=== PATIENT | female | born 1995 | race Two or more races ===

== ENCOUNTER 2019-02-13 05:10 | Emergency (ER) | payer SELFPAY ==
[~2019-02-13] VITALS: Ht 157.5 cm; Wt 49.9 kg
--- NOTE | 2019-02-13 05:31 | NUR ---
kieran 61 from car with family for ETOH. pt nonverbal at this time. eye open. pt responds to painful stimuli. rr even and unlabored. no sob noted. no nvd at this time. pt connected to monitor. waiting for md quevedo.
--- NOTE | 2019-02-13 06:20 | NUR ---
[employer] TIME ANALYST AT BEDSIDE FOR BLOOD DRAW
[2019-02-13] MEDS ORDERED: OLANZAPINE 10 MG VIAL IM ONE ×2 (06:27→06:30)
[2019-02-13] MEDS ORDERED: IV NS 0.9% 1,000 ML BAG IV ONE (06:30)
[2019-02-13 06:39] LABS: BASOPHILS # (AUTO) 0.1 /CMM (0.0-0.2); BASOPHILS % (AUTO) 0.3 % (0.0-2.0); HEMATOCRIT 40 % (33-45); HEMOGLOBIN 12.4 g/dL (11.5-14.8); LYMPHOCYTES # (AUTO) 0.6 /CMM (0.8-4.8); LYMPHOCYTES % (AUTO) 3.6 % (20.0-44.0); MEAN CORPUSCULAR HGB CONC 31 g/dl (31.0-36.0); MEAN CORPUSCULAR VOLUME 76 fL (82-100); MONOCYTES # (AUTO) 1.2 /CMM (0.1-1.30); MONOCYTES % (AUTO) 6.9 % (2.0-12.0); NEUTROPHILS # (AUTO) 15.7 /CMM (1.8-8.9); NEUTROPHILS % (AUTO) 89.2 % (43.0-81.0); PLATELET COUNT (AUTO) 247 /CMM (150-450); RED BLOOD CELL COUNT(AUTO) 5.29 MIL/uL (4.0-5.2); WHITE BLOOD COUNT (AUTO) 17.6 K/uL (4.3-11.0)
--- NOTE | 2019-02-13 06:50 | NUR ---
URINE COLLECTED AND SENT TO LAB
[2019-02-13 07:04] LABS: ALBUMIN 4.7 g/dL (3.4-5.0); BILIRUBIN,DIRECT 0.1 mg/dL (0.0-0.2); BILIRUBIN,TOTAL 0.4 mg/dL (0.2-1.0); CALCIUM, SERUM 9.1 mg/dL (8.5-10.1); CREATININE 0.7 mg/dL (0.6-1.3); POTASSIUM 3.4 mmol/L (3.5-5.1); TOTAL PROTEIN, SERUM 8.8 g/dL (6.4-8.2)
[2019-02-13 07:20] LABS: SALICYLATE 2.1 mg/dL (2.8-20.0)
[2019-02-13 07:22] LABS: APPEARANCE,URINE CLEAR (CLEAR); BILIRUBIN,URINE NEGATIVE (NEGATIVE); BLOOD, URINE TRACE Ery/uL (NEGATIVE); COLOR,URINE YELLOW (YELLOW); KETONES,URINE TRACE (NEGATIVE); LEUKOCYTE ESTERASE ,URINE NEGATIVE (NEGATIVE); NITRITE, URINE NEGATIVE (NEGATIVE); PH,URINE 5.5 (5.0-8.0); PROTEIN,URINE NEGATIVE (NEGATIVE); UGLUCOSE NEGATIVE (NEGATIVE); UROBILINOGEN,URINE 0.2 EU/dL (0.2)
--- NOTE | 2019-02-13 07:22 | NUR ---
KAY PT'S MOTHER
[2019-02-13 07:44] LABS: BACTERIA,URINE Rare /HPF (None Seen); RBC,URINE 0-2 /HPF (0-2); SQUAMOUS EPITHELIAL CELL,UR Few /HPF (None Seen); WBC,URINE 0-2 /HPF (0-3)
--- NOTE | 2019-02-13 08:00 | NUR ---
Patient is resting comfortably in bed with eyes closed. Easily aroused. VSS
--- NOTE | 2019-02-13 11:24 | NUR ---
SPOKE TO PT MOM TO PICK HER UP. OTW TO HOSPITAL NOW.
[2019-02-13 12:19] VITALS: BP 100/55
--- NOTE | 2019-02-13 12:57 | NUR ---
PATIENT'S MOM AT BEDSIDE, PATIENT A/OX4, BREATHING EVEN AND UNLABORED, NO SOB NOTED. Abulatory with a steady gait. IV removed. Catheter intact and site benign. Pressure and 4x4 applied to site. No bleeding noted.Patient discharged to home in stable condition. Written and verbal after care instructions given. Patient verbalizes understanding of instruction.
--- NOTE | 2019-02-13 13:01 | NUR ---
IV removed. Catheter intact and site benign. Pressure and 4x4 applied to site. No bleeding noted. Patient discharged to home in stable condition. Written and verbal after care instructions given. Patient verbalizes understanding of instruction.
== END 2019-02-13 13:01 | disposition home or self-care (01) ==
LOC: ER 05:14
DX: O99.311 Alcohol use complicating pregnancy, first trimester (principal); O26.891 Other specified pregnancy related conditions, first trimester; F15.10 Other stimulant abuse, uncomplicated; O99.341 Other mental disorders complicating pregnancy, first trimester; R41.82 Altered mental status, unspecified; Z3A.00 Weeks of gestation of pregnancy not specified
CPT/HCPCS: 36415; 80048; 80076; 80305; 80307; 80329; 81001; 84702; 85025; 96360; 96372; 99283; G0480; J3490; J7030; 81000-TC